=== PATIENT | female | born 1945 | race Caucasian/White ===

== ENCOUNTER 2022-11-29 17:21 | Emergency (ER) | payer OTHER ==
[~2022-11-29] VITALS: Ht 160 cm; Wt 72.6 kg
[2022-11-29 17:28] VITALS: BP 128/72
--- NOTE | 2022-11-29 17:28 | NUR ---
77 YO F KARL FROM [facility], SENT FOR UNWITHNESSED FALL , UNKNOWN LOC, PT STATES SHE TRIPPED AND FELL, LAC NOTED ON BACK OF HEAD-2CM LAC , BLEED CONTROLLED, PT DENIES NECK PAIN, N,V,D, DIZZINESS. DENIES HIP PAIN, AOX2. HX DEMENTIA, HTN. NO ACUTE DISTRESS NOTED, FULL RANGE OF MOTION PRESENT ON ALL EXTREMETIES, SAFETY MAINTAINED.
--- NOTE | 2022-11-29 17:53 | NUR ---
PT IN CT
[2022-11-29] MEDS ORDERED: LIDOCAINE 1% 500 MG/ 50 ML VIAL INJ ONE (18:50)
[2022-11-29] MEDS ORDERED: LIDOCAINE MPF 1% 10 MG/ML VIAL INJ ONE (18:55)
--- NOTE | 2022-11-29 19:14 | NUR ---
REPORT GIVEN TO CONCHA ROJAS
--- NOTE | 2022-11-29 19:25 | NUR ---
LAC S/P MECHANICAL TRIP AND FALL. LAC REPAIR WAS PERFORMED BY THE PROVIDER. ERYN WERE APPLIED. PER PROVIDER CT-SCAN WAS NEGATIVE.
--- NOTE | 2022-11-29 20:04 | NUR ---
PT DISCHARGED. THE FACILITY WHERE THE PT RESIDES REQUESTED THAT THE PT'S DAUGHTER BE TRANSPORTED BACK BY THE PT'S DAUGHTER. PT'S DAUGHTER CRUZ WAS CALLED TO INFORM HER THAT HER MOTHER WAS DISCHARGED. PT'S DAUGHTER STATED, THAT SHE LIVES 30 MINUTES AWAY AND WAS NOT TOLD THAT THIS IS HOW IT WORKS. PT'S DAUGHTER IS CURRENTLY CALLING THE RESIDENCE AT THIS TIME.
[2022-11-29 20:09] VITALS: BP 149/58
--- NOTE | 2022-11-29 20:19 | NUR ---
PT'S DAUGHTER DECLINED TO COME TRANSPORT THE PT BACK TO THE FACILITY. PT CURRENTLY HOLDING IN THE ER UNTIL TRANSPORTATION CAN BE ARRANGED.
== END 2022-11-29 20:04 | disposition home or self-care (01) ==
LOC: MED 17:21
DX: S01.01XA Laceration without foreign body of scalp, initial encounter (principal); W01.0XXA Fall on same level from slipping, tripping and stumbling without subsequent striking against object, initial encounter; Y93.89 Activity, other specified; Y92.89 Other specified places as the place of occurrence of the external cause; Y99.8 Other external cause status
CPT/HCPCS: 12001; 70450; 99284; J2001